=== PATIENT | male | born 1995 | race Two or more races ===

== ENCOUNTER 2021-07-02 02:11 | Emergency (ER) | payer MEDICAID, OTHER ==
[~2021-07-02] VITALS: Ht 182.9 cm; Wt 145.1 kg
[2021-07-02 03:43] LABS: Urine WBC None Seen /hpf (0 - 3)
[2021-07-02] MEDS ORDERED: CALCIUM GLUC 1,000mg/50ml-NS 50 ML IV ONE ×2 (03:45)
[2021-07-02 03:50] LABS: Urine Bacteria NONE SEEN /hpf (None Seen); Urine Blood 1+ /uL (Negative); Urine Specific Gravity 1.002 (1.001-1.035)
[2021-07-02] MEDS ORDERED: TRANEXAMIC ACID 10 ML ONE (04:04)
[2021-07-02 04:14] LABS: Amphetamine Screen, Urine NEGATIVE (NEGATIVE); Barbiturate Scree,Urine NEGATIVE (NEGATIVE); Benzodiazephine Screen, Urine NEGATIVE (NEGATIVE); Cannabinoid Screen, Urine POSITIVE (NEGATIVE); Cocaine Screen, Urine POSITIVE (NEGATIVE); Phencyclidine Screen, Urine NEGATIVE (NEGATIVE)
[2021-07-02] MEDS ORDERED: NOREPINEPHRINE 8 MG/250ML KIT 250 ML IV SCH (04:15)
[2021-07-02 04:16] LABS: Basophils # (auto) 0.1 10 ^3/uL (0-0.2); Basophils % (auto) 0.5 % (0.0-2.0); Eosinophils # (auto) 0 10 ^3/uL (0-0.8); Eosinophils % (auto) 0.1 % (0.0-7.0); Hematocrit 42.3 % (41.0-53.0); Hemoglobin 14.2 g/dL (13.5-17.5); Lymphocytes # (auto) 1.6 10 ^3/uL (0.4-5.4); Lymphocytes % (auto) 6.3 % (10.0-50.0); Mean Corpuscular Hemoglobin 32.2 pg (28.0-32.0); Mean Corpuscular Hgb Conc. 33.5 g/dL (32.0-36.0); Mean Corpuscular Volume 96.1 fL (80.0-100.0); Monocytes # (auto) 1.5 10 ^3/uL (0-1.3); Monocytes % (auto) 6.1 % (0.0-12.0); Neutrophils # (auto) 21.8 10 ^3/uL (1.6-8.6); Nucleated Red Blood Cells % 0.1 %; Red Cell Distribution Width 13.1 % (11.8-14.3); White Blood Cell 25.1 10^3/uL (4.4-10.8)
[2021-07-02] MEDS ORDERED: ROCURONIUM 10MG/ML 10ML VIAL IV ONE ×2 (04:17→06:15)
[2021-07-02] MEDS ORDERED: KETAMINE HCL 10 ML ONE (04:19)
[2021-07-02 04:22] LABS: Opiate Scree,Urine NEGATIVE (NEGATIVE)
[2021-07-02] MEDS ORDERED: MIDAZOLAM DRIP 50 mg/50mL 50 ML IV ONE (04:23)
[2021-07-02 04:39] LABS: INR 1.09 (0.9-1.15); Partial Thromboplastin Time 22.4 sec (23.6-33.0)
[2021-07-02] MEDS ORDERED: MIDAZOLAM DRIP 50 mg/50mL 50 ML IV SCH (04:45)
[2021-07-02] MEDS ORDERED: KETAMINE 50mg/ML 10ml Vial (500mg/10ml) IM ONE (04:45)
[2021-07-02] MEDS ORDERED: KETAMINE 50mg/ML 10ml Vial (500mg/10ml) IV ONE ×3 (05:00→06:15)
[2021-07-02 05:38] LABS: Potassium 3.9 mmol/L (3.5-5.1)
[2021-07-02 05:39] LABS: Albumin 2.9 g/dL (3.4-5.0); BUN/Creatinine Ratio 6.7; Bilirubin, Total 0.4 mg/dL (0.2-1.0); Blood Alcohol 179.8 mg/dL (0-5); Calcium 7.7 mg/dL (8.5-10.1); Total Protein 6.3 g/dL (6.4-8.2)
[2021-07-02 06:11] VITALS: BP 121/63
== END 2021-07-02 06:35 | disposition short-term general hospital (02) ==
LOC: ER 02:11 → EDBD 02:11 → ER 06:35
DX: S22.42XA Multiple fractures of ribs, left side, initial encounter for closed fracture (principal); J93.9 Pneumothorax, unspecified; J94.2 Hemothorax; R51.9 Headache, unspecified; M54.2 Cervicalgia; Z20.822 Contact with and (suspected) exposure to COVID-19; V43.52XA Car driver injured in collision with other type car in traffic accident, initial encounter; Y93.89 Activity, other specified; Y92.488 Other paved roadways as the place of occurrence of the external cause; Y99.8 Other external cause status
CPT/HCPCS: 31500; 32556; 36415; 36430; 70450; 71045; 71250; 72125; 74176; 80053; 80307; 80320; 81001; 83735; 85025; 85610; 85730; 86850; 86900; 86901; 86920; 87426; 93005; 96365; 96368; 99291; J0610; J2250; P9016; P9017